=== PATIENT | male | born 1990 | race Caucasian/White ===

== ENCOUNTER 2019-02-14 18:52 | Observation (INO) | payer OTHER ==
[~2019-02-14] VITALS: Ht 195.6 cm; Wt 103.0 kg
--- NOTE | ~2019-02-14 | EKG ---
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
[2019-02-14 19:04] VITALS: BP 146/80
[2019-02-14 19:12] LABS: ABSOLUTE EOSINOPHILS 0.2 thou/uL (0.0-0.7); ABSOLUTE LYMPHOCYTES 3.1 thou/uL (0.8-5.3); ABSOLUTE MONOCYTES 0.5 thou/uL (0.0-1.2); ABSOLUTE NEUTROPHILS 2.9 thou/uL (1.6-8.1); BASOPHILS 0.6 %; EOSINOPHILS 2.8 %; HEMATOCRIT 46.2 % (42.0-52.0); HEMOGLOBIN 15.7 gm/dL (14.0-18.0); LYMPHOCYTES 45.6 %; MCH 29.1 pg (26.0-34.0); MCV 85.7 fL (80.0-100.0); MONOCYTES 7.9 %; MPV 7.3 fl. (7.2-11.1); NUCLEATED RBCS 0 /100WBC; PLATELET COUNT* 278 thou/uL (150-400); POLYS 43.1 %; RDW-CV 14.5 % (10.5-14.5); WBC 6.8 thou/uL (4.0-11.0)
[2019-02-14 19:28] LABS: CALCIUM 9.6 mg/dL (8.5-10.1); CREATININE 1.1 mg/dL (0.6-1.3); POTASSIUM 4.2 mmol/L (3.5-5.1)
[2019-02-14 19:32] LABS: ALBUMIN 4.1 g/dL (3.4-5.0); TOTAL BILIRUBIN 0.3 mg/dL (<0.1-1.0)
[2019-02-14 20:25] LABS: URINE BILIRUBIN NEGATIVE (Negative); URINE BLOOD NEGATIVE (Negative); URINE CLARITY CLEAR; URINE COLOR YELLOW; URINE GLUCOSE-RANDOM NEGATIVE (Negative); URINE KETONES NEGATIVE (Negative); URINE LEUKOCYTES-REFLEX NEGATIVE (Negative); URINE NITRITE-REFLEX NEGATIVE (Negative); URINE PROTEIN NEGATIVE (Negative); URINE UROBILINOGEN 0.2 E.U./dl (0.2-1.0)
[2019-02-14 22:23] VITALS: BP 109/56
[2019-02-14 22:44] LABS: AMP/METHAMP Negative (Negative); BARBITURATES Negative (Negative); BENZODIAZEPINES Negative (Negative); COCAINE Negative (Negative); METHADONE Negative (Negative); OPIATES Negative (Negative); PCP Negative (Negative); THC Negative (Negative)
[2019-02-14 23:00] VITALS: BP 114/55
[2019-02-15 04:00] VITALS: BP 91/49
[2019-02-15 04:49] LABS: HEMATOCRIT 41.3 % (42.0-52.0); MCH 29.1 pg (26.0-34.0); MCHC 33.9 g/dL (28.0-37.0); MCV 85.8 fL (80.0-100.0); MPV 7.6 fl. (7.2-11.1); RBC 4.82 mil/uL (4.50-6.00); RDW-CV 14.1 % (10.5-14.5); WBC 6.2 thou/uL (4.0-11.0)
--- NOTE | 2019-02-15 05:00 | NUR ---
RECEIVED REPORT FROM KIM IN ED. PT ARRIVED AT APPROX 2300. PT IS AWAKE AND ORIENTED X4. 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 ADVISED ON THE USE OF CALL LIGHT. ORIENTED ON ROOM SET UP. ADMISSION ASSESSMENT DONE AND CHARTED. BRADYCARDIA NOTED AT 0335H @ 35bpm. DR. URIARTE INFORMED, NO NEW ORDERS RECEIVED. PT REMAINED ASYMPTOMATIC. HOURLY ROUNDING DONE FOR PT SAFETY.CALL LIGHT WITHIN REACH.
[2019-02-15 05:16] LABS: CHOLESTEROL 176 mg/dL (<200); HDL CHOLESTEROL 28 mg/dL (>40); LDL CHOLESTEROL 126 mg/dL (<100); TC:HDL 6.3 Ratio (Not establshd); TRIGLYCERIDE 114 mg/dL (<150); VLDL 23 mg/dL (<40)
[2019-02-15 05:27] LABS: ANION GAP 9 mmol/L (7-16); BUN 11 mg/dL (7-18); CALCIUM 8.9 mg/dL (8.5-10.1); CHLORIDE 109 mmol/L (98-107); CO2 27 mmol/L (21-32); CREATININE 0.9 mg/dL (0.6-1.3); GLUCOSE 91 mg/dL (70-99); POTASSIUM 3.9 mmol/L (3.5-5.1); SODIUM 145 mmol/L (136-145); TROPONIN-I LEVEL <0.06 ng/mL (<0.06)
[2019-02-15 05:37] LABS: SERUM ASSESSMENT CLEAR
[2019-02-15 07:58] VITALS: BP 106/56
--- NOTE | 2019-02-15 10:14 | EKG ---
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
[2019-02-15 11:30] VITALS: BP 108/63
--- NOTE | 2019-02-15 12:39 | EKG ---
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
[2019-02-15 14:31] VITALS: BP 108/63
--- NOTE | 2019-02-15 15:39 | NUR ---
PT GIVEN D/C INSTRUCTIONS AND VERBALIZED UNDERSTANDING TO FOLLOW UP WITH PCP IN 2 WEEKS. IV REMOVED INTACT AND PT AMBULATED OFF UNIT WITH HOSPITAL STAFF WITH STEADY GAIT. NO NEW CONCERNS AT THIS TIME. WILL SIGN OFF
--- NOTE | 2019-02-16 10:34 | CON ---
[address] [address] CONSULTATION Name: CHELSEY MUÑOZ Room: [address] Talisha Penn#: [id number] Admission: 02/14/19 Attend Phys: Eunice Garcia MD Discharge: 02/15/19 Date of : [birth year] Report #: [id number] THIS REPORT FOR: //name// CC: DWAYNE physician/PCP Eunice Garcai DATE OF SERVICE: 02/15/2019 HISTORY OF PRESENT ILLNESS: The patient is a 28-year-old single white male who I was asked to see in the hospital today after he complained of chest pain. History is obtained from the patient as well as his dad and grandmother who are present. According to grandmother, he actually was noted to have a heart murmur when he was 16 years old. Apparently saw Dr. Mcdowell, a final assembly and packing supervisor, in [place], [place] and had a cardiac evaluation that included a treadmill test and echocardiogram and told there was no evidence of significant heart disease and he was cleared for sports. The patient does not exercise on a regular basis. He does have occasional chest pain, although it is nonexertional. Yesterday, he was working on his car when he felt a sharp pain in his back that radiated into his chest. There was no associated diaphoresis or nausea. He did feel somewhat sweaty. He was brought to the Emergency Room and admitted for further evaluation and treatment. He denies exertional dyspnea, syncope. He does note occasional skipped heartbeat. PAST MEDICAL HISTORY: He has had no surgical procedures. MEDICATIONS: He is on no medication. ALLERGIES: He has no known drug allergies. FAMILY HISTORY: His father had heart disease. SOCIAL HISTORY: He is single, currently not working. Lives in [place]. He does smoke cigarettes. No alcohol abuse. REVIEW OF SYSTEMS: No history of stroke. He has had a history of asthma. No history of peptic ulcer disease, liver disease, kidney disease, cancer, psychiatric illness, chronic skin condition. Does wear glasses. PHYSICAL EXAMINATION: GENERAL: He is a young white male, lying in bed, appeared in no distress. VITAL SIGNS: Blood pressure of 110/60, pulse 60. He is afebrile. HEENT: He is anicteric. Conjunctivae pink. Mucous membranes moist. NECK: Neck veins are not distended. No carotid bruits. Neck is supple. CHEST: Clear to auscultation. CARDIOVASCULAR: Regular rate and rhythm without murmur. ABDOMEN: [place] [address] CONSULTATION Name: CHELSEY MUÑOZ [address]#: [id number] Admission: 02/14/19 Attend Phys: Eunice Garcia MD Discharge: 02/15/19 Date of : [birth year] Report #: [id number] EXTREMITIES: Had no edema. Posterior tibial pulse 2+ bilaterally. SKIN: Warm and dry. NEUROLOGIC: Nonfocal. PSYCHIATRIC: Mood is flat. His ECG showed a sinus bradycardia with early repolarization. His workup in the Emergency Room, he had a chest x-ray that showed normal heart size, clear lung hammond. LABORATORY DATA: Sodium 145, potassium 3.9, creatinine 0.9, glucose 91. Liver function studies were normal. Troponins all 0.06. Cholesterol 176, triglyceride 114, HDL 28, LDL 126, TSH 1.4. His white blood cell count 6.2, hemoglobin 14.0. IMPRESSION AND RECOMMENDATIONS: 1. Chest pain. Suspect musculoskeletal. Recommend no further cardiac evaluation. 2. Sinus bradycardia. Suspect vasovagal. Asymptomatic. I would avoid beta blockers. 3. History of asthma. <ELECTRONICALLY SIGNED> By: Modesto Garcia MD, FACC 02/16/19 1034 1124 0250Modesto Garcia MD, FACC /nt
== END 2019-02-15 15:40 | disposition home or self-care (01) ==
LOC: M.ERS 18:52 → M.TBA-ER 21:36 → M.2W 21:36
PROVIDERS: Personal Emergency Response Attendant; ADMIT Family Medicine
DX: R07.89 Other chest pain (principal); R00.1 Bradycardia, unspecified; F17.210 Nicotine dependence, cigarettes, uncomplicated; Z87.09 Personal history of other diseases of the respiratory system